=== PATIENT | female | born 1990 | race Caucasian/White ===

== ENCOUNTER 2017-07-28 07:39 | Emergency (ER) | payer BC ==
--- NOTE | 2017-07-28 07:58 | EDM.PDOC ---
ED HPI GENERAL MEDICAL PROBLEM - General Chief Complaint: Cardiovascular Problem Stated Complaint: HIGH BLOOD PRESSURE Time Seen by Provider: 07/28/17 07:58 Source of Information: Reports: Patient - History of Present Illness INITIAL COMMENTS - FREE TEXT/NARRATIVE: HISTORY AND PHYSICAL: History of present illness: []Patient presents with a history of high blood pressure and anxiety formerly on methyldopa she is now currently 12 weeks followed by Linda Jarvis. She has been on methyldopa 250 mg daily over the last year with fair blood pressure control, recently started on labetalol 300 mg, in doing some Internet reading the patient learned that there can be vasoconstriction and an increase in blood pressure with these medications. And she requested new medication and nifedipine 60 mg extended release was started yesterday. She presents this morning she has not taken any medication her blood pressure is elevated and she appears anxious Fever nausea vomiting chills sweats no chest pain shortness breath headache dizziness or palpitation no bowel or urine symptoms no low back pain and pressure vaginal fluid leakage bleeding spotting or discharge Review of systems: As per history of present illness and below otherwise all systems reviewed and negative. Past medical history: As per history of present illness and as reviewed below otherwise noncontributory. Surgical history: As per history of present illness and as reviewed below otherwise noncontributory. Social history: No reported history of drug or alcohol abuse. Family history: As per history of present illness and as reviewed below otherwise noncontributory. Physical exam: HEENT: Atraumatic, normocephalic, pupils reactive, negative for conjunctival pallor or scleral icterus, mucous membranes moist, throat clear, neck supple, nontender, trachea midline. Lungs: Clear to auscultation, breath sounds equal bilaterally, chest nontender. Heart: S1S2, regular, negative for clicks, rubs, or JVD. Abdomen: Soft, nondistended, nontender. Negative for masses or hepatosplenomegaly. Negative for costovertebral tenderness. Pelvis: Stable nontender. Genitourinary: Deferred. Rectal: Deferred. Extremities: Atraumatic, negative for cords or calf pain. Neurovascular unremarkable. Neuro: Awake, alert, oriented. Cranial nerves II through XII unremarkable. Cerebellum unremarkable. Motor and sensory unremarkable throughout. Exam nonfocal. Diagnostics: []CBC CMP [employer]: []Patient is on Procardia as of yesterday Procardia/nifedipine 60 mg ER by mouth now Labetalol 300 mg by mouth now Current blood pressure 130/100 after 1 hour, I'm not going to make further change I'll have her follow with her OB provider/primary care for further management of her hypertension Impression: Chronic hypertension in [12 weeks IUP] Definitive disposition and diagnosis as appropriate pending reevaluation and review of above. headache Pain Score (Numeric/FACES): 10 - Related Data Allergies Allergy/AdvReac Type Severity Reaction Status Date / Time Sulfa (Sulfonamide Allergy Rash Verified 07/28/17 07:50 Antibiotics) Home Meds: Home Meds NIFEdipine [Nifedical XL] 60 mg PO DAILY 07/28/17 [History] Past Medical History - Past Health History Medical/Surgical History: Denies Medical/Surgical History Cardiovascular History: Reports: Hypertension - Infectious Disease History Infectious Disease History: Reports: Chicken Pox Social & Family History - Family History Family Medical History: Noncontributory - Tobacco Use Smoking Status *Q: Never Smoker Second Hand Smoke Exposure: No - Caffeine Use Caffeine Use: Reports: None - Alcohol Use Days Per Week of Alcohol Use: 2 Number of Drinks Per Day: 4 Total Drinks Per Week: 8 - Recreational Drug Use Recreational Drug Use: No ED ROS GENERAL - Review of Systems Review Of Systems: ROS reveals no pertinent complaints other than HPI. ED EXAM, GENERAL - Physical Exam Exam: See Below Course - Vital Signs Last Recorded V/S: Last Vital Signs Temp 96.9 F 07/28/17 07:51 Pulse 82 07/28/17 10:20 Resp 18 07/28/17 10:20 BP 148/106 H 07/28/17 10:20 Pulse Ox 98 07/28/17 10:20 - Orders/Labs/Meds Labs: Laboratory Tests 07/28/17 07/28/17 07/28/17 Range/Units 08:03 08:03 08:03 WBC 10.28 (4.0-11.0) K/uL RBC 5.10 (4.30-5.90) M/uL Hgb 15.2 (12.0-16.0) g/dL Hct 43.9 (36.0-46.0) % MCV 86.1 (80.0-98.0) fL MCH 29.8 (27.0-32.0) pg MCHC 34.6 (31.0-37.0) g/dL RDW Std Deviation 39.1 (28.0-62.0) fl RDW Coeff of Smith 12 (11.0-15.0) % Plt Count 324 (150-400) K/uL MPV 10.10 (7.40-12.00) fL Neut % (Auto) 76.3 (48.0-80.0) % Lymph % (Auto) 18.6 (16.0-40.0) % [place] % (Auto) 4.5 (0.0-15.0) % Eos % (Auto) 0.3 (0.0-7.0) % Baso % (Auto) 0.3 (0.0-1.5) % Neut # (Auto) 7.9 H (1.4-5.7) K/uL Lymph # (Auto) 1.9 (0.6-2.4) K/uL [place] # (Auto) 0.5 (0.0-0.8) K/uL Eos # (Auto) 0.0 (0.0-0.7) K/uL Baso # (Auto) 0.0 (0.0-0.1) K/uL Nucleated RBC % 0.0 /100WBC Nucleated RBCs # 0 K/uL Sodium 136 (136-145) mmol/L Potassium 4.1 (3.5-5.1) mmol/L Chloride 102 (98-107) mmol/L Carbon Dioxide 22.8 (21.0-32.0) mmol/L BUN 9 (7.0-18.0) mg/dL Creatinine 0.9 (0.6-1.0) mg/dL Est Cr Clr Drug Dosing 79.85 mL/min Estimated GFR (MDRD) > 60.0 ml/min Glucose 99 (74-106) mg/dL Calcium 9.6 (8.5-10.1) mg/dL Total Bilirubin 0.5 (0.2-1.0) mg/dL AST 15 (15-37) IU/L ALT 22 (14-63) IU/L Alkaline Phosphatase 37 L (46-116) U/L Total Protein 7.9 (6.4-8.2) g/dL Albumin 4.2 (3.4-5.0) g/dL Globulin 3.7 H (2.0-3.5) g/dL Albumin/Globulin Ratio 1.1 L (1.3-2.8) HCG, Quant 19582.0 mIU/mL Urine Color Urine Appearance Urine pH (5.0-8.0) Ur Specific [place] (1.001-1.035) Urine Protein (NEGATIVE) mg/dL Urine Glucose (UA) (NEGATIVE) mg/dL Urine Ketones (NEGATIVE) mg/dL Urine Occult Blood (NEGATIVE) Urine Nitrite (NEGATIVE) Urine Bilirubin (NEGATIVE) Urine Urobilinogen (<2.0) EU/dL Ur Leukocyte Esterase (NEGATIVE) Urine RBC (0-2/HPF) Urine WBC (0-5/HPF) Ur Epithelial Cells (NONE-FEW) Urine Bacteria (NEGATIVE) 07/28/17 Range/Units 09:30 WBC (4.0-11.0) K/uL RBC (4.30-5.90) M/uL Hgb (12.0-16.0) g/dL Hct (36.0-46.0) % MCV (80.0-98.0) fL MCH (27.0-32.0) pg MCHC (31.0-37.0) g/dL RDW Std Deviation (28.0-62.0) fl RDW Coeff of Smith (11.0-15.0) % Plt Count (150-400) K/uL MPV (7.40-12.00) fL Neut % (Auto) (48.0-80.0) % Lymph % (Auto) (16.0-40.0) % [place] % (Auto) (0.0-15.0) % Eos % (Auto) (0.0-7.0) % Baso % (Auto) (0.0-1.5) % Neut # (Auto) (1.4-5.7) K/uL Lymph # (Auto) (0.6-2.4) K/uL [place] # (Auto) (0.0-0.8) K/uL Eos # (Auto) (0.0-0.7) K/uL Baso # (Auto) (0.0-0.1) K/uL Nucleated RBC % /100WBC Nucleated RBCs # K/uL Sodium (136-145) mmol/L Potassium (3.5-5.1) mmol/L Chloride (98-107) mmol/L Carbon Dioxide (21.0-32.0) mmol/L BUN (7.0-18.0) mg/dL Creatinine (0.6-1.0) mg/dL Est Cr Clr Drug Dosing mL/min Estimated GFR (MDRD) ml/min Glucose (74-106) mg/dL Calcium (8.5-10.1) mg/dL Total Bilirubin (0.2-1.0) mg/dL AST (15-37) IU/L ALT (14-63) IU/L Alkaline Phosphatase (46-116) U/L Total Protein (6.4-8.2) g/dL Albumin (3.4-5.0) g/dL Globulin (2.0-3.5) g/dL Albumin/Globulin Ratio (1.3-2.8) HCG, Quant mIU/mL Urine Color YELLOW Urine Appearance CLEAR Urine pH 6.5 (5.0-8.0) Ur Specific [place] 1.010 (1.001-1.035) Urine Protein NEGATIVE (NEGATIVE) mg/dL Urine Glucose (UA) NEGATIVE (NEGATIVE) mg/dL Urine Ketones NEGATIVE (NEGATIVE) mg/dL Urine Occult Blood NEGATIVE (NEGATIVE) Urine Nitrite NEGATIVE (NEGATIVE) Urine Bilirubin NEGATIVE (NEGATIVE) Urine Urobilinogen 0.2 (<2.0) EU/dL Ur Leukocyte Esterase NEGATIVE (NEGATIVE) Urine RBC NONE SEEN (0-2/HPF) Urine WBC 0-1 (0-5/HPF) Ur Epithelial Cells FEW (NONE-FEW) Urine Bacteria FEW (NEGATIVE) Meds: Medications Discontinued Medications Generic Name Dose Route Start Last Admin Trade Name Freq PRN Reason Stop Dose Admin Sodium Chloride 1,000 mls @ 999 mls/hr 07/28/17 07:59 07/28/17 08:17 Normal Saline IV 07/28/17 08:59 999 mls/hr STAT ONE Administration Labetalol HCl 300 mg 07/28/17 09:44 07/28/17 10:00 Normodyne PO 07/28/17 09:45 300 mg ONETIME ONE Administration Lorazepam 1 mg 07/28/17 07:59 07/28/17 08:18 Ativan IVPUSH 07/28/17 08:00 1 mg ONETIME ONE Administration Nifedipine 60 mg 07/28/17 08:31 07/28/17 08:57 Procardia Xl PO 07/28/17 08:32 60 mg ONETIME ONE Administration Nifedipine Confirm 07/28/17 08:54 07/28/17 09:32 Procardia Xl Administered 07/28/17 08:55 Not Given Dose 30 mg .ROUTE .STK-MED ONE Departure - Departure Time of Disposition: 11:03 Disposition: Home, Self-Care 01 Condition: Good Clinical Impression: Hypertension Referrals: Javier Beard MD [Primary Care Provider] - Forms: ED Department Discharge Additional Instructions: Recommend the blood pressure log that we discussed providing with your primary care/OB provider so they can further adjust medication as needed Currently labetalol 300 mg by mouth daily and nifedipine 60 mg by mouth daily is my recommendation Return if symptoms persist or worsen or new concerning symptoms develop Follow-up with OB or primary care next week for further adjustment as needed The following information is given to patients seen in the emergency department who are being discharged to home. This information is to outline your options for follow-up care. We provide all patients seen in our emergency department with a follow-up referral. The need for follow-up, as well as the timing and circumstances, are variable depending upon the specifics of your emergency department visit. If you don't have a primary care physician on staff, we will provide you with a referral. We always advise you to contact your personal physician following an emergency department visit to inform them of the circumstance of the visit and for follow-up with them and/or the need for any referrals to a consulting specialist. The emergency department will also refer you to a specialist when appropriate. This referral assures that you have the opportunity for follow-up care with a specialist. All of these measure are taken in an effort to provide you with optimal care, which includes your follow-up. Under all circumstances we always encourage you to contact your private physician who remains a resource for coordinating your care. When calling for follow-up care, please make the office aware that this follow-up is from your recent emergency room visit. If for any reason you are refused follow-up, please contact the [facility] emergency department at and asked to speak to the emergency department charge nurse.
[2017-07-28] MEDS ORDERED: LORazepam 2 MG/ML SDV IVPUSH ONE (07:59)
[2017-07-28] MEDS ORDERED: Sodium Chloride 0.9% 1,000 ML IV ONE (07:59)
[2017-07-28] MEDS ORDERED: NIFEdipine 30 MG Tab.ER PO ONE (08:31)
[2017-07-28 08:32] LABS: CHLORIDE,CL 102 mmol/L (98-107); SODIUM,NA 136 mmol/L (136-145)
[2017-07-28] MEDS ORDERED: NIFEdipine 30 MG Tab.ER ONE (08:54)
[2017-07-28] MEDS ORDERED: Labetalol 100 MG Tab PO ONE (09:44)
[2017-07-28 11:30] VITALS: BP 142/102
== END 2017-07-28 11:25 | disposition home or self-care (01) ==
LOC: MW.ED 07:39
DX: O10.911 Unspecified pre-existing hypertension complicating pregnancy, first trimester (principal); Z88.2 Allergy status to sulfonamides; Z79.899 Other long term (current) drug therapy; Z3A.12 12 weeks gestation of pregnancy
CPT/HCPCS: 36415; 80053; 81001; 84702; 85025; 96361; 96374; 99283; A9270; J2060; J7040

== ENCOUNTER 2020-07-13 10:52 | Inpatient (IN) | payer BC ==
[2020-07-13] MEDS ORDERED: Sodium Chloride 0.9% 2.5 ML Syringe FLUSH PRN (12:03)
[2020-07-13] MEDS ORDERED: Sodium Chloride 0.9% 10 ML SDV IV PRN (12:03)
[2020-07-13] MEDS ORDERED: Sodium Chloride 0.9% 10 ML Syringe FLUSH PRN (12:03)
[2020-07-13] MEDS ORDERED: Nalbuphine 10 MG/1 ML Vial IVPUSH PRN (12:03)
[2020-07-13] MEDS ORDERED: Water For Irrigation,Sterile 1,000 ML Container IRR PRN (12:03)
[2020-07-13] MEDS ORDERED: Misoprostol 200 MCG Tab PO PRN (12:03)
[2020-07-13] MEDS ORDERED: Ondansetron 4 MG/2 ML SDV IVPUSH PRN (12:03)
[2020-07-13] MEDS ORDERED: Tranexamic Acid 1,000 MG in Sodium Chloride 0.9% 100 ML IV PRN (12:03)
[2020-07-13] MEDS ORDERED: Carboprost Tromethamine 250 MCG/1 ML Amp IM PRN (12:03)
[2020-07-13] MEDS ORDERED: Methylergonovine 0.2 MG/1 ML Amp IM PRN (12:03)
[2020-07-13] MEDS ORDERED: Butorphanol 1 MG/ML SDV IVPUSH PRN (12:03)
[2020-07-13] MEDS ORDERED: Lidocaine 1% 50 ML MDV INJECT PRN (12:03)
[2020-07-13] MEDS ORDERED: Lactated Ringers 1,000 ML IV SCH (12:15)
[2020-07-13] MEDS ORDERED: Oxytocin/0.9 % Sodium Chloride 30 UNIT/500 ML BAG IV SCH ×2 (12:15→14:30)
[2020-07-13] MEDS ORDERED: Terbutaline 1 MG/ML SDV SUBCUT PRN (14:28)
[2020-07-13] MEDS ORDERED: Bupivicaine/fentaNYL/NS 250 ML ONE (17:06)
[2020-07-13] MEDS ORDERED: Ropivacaine 0.2% PF 2 MG/ML 20 ML SDV ONE (17:07)
--- NOTE | 2020-07-13 17:39 | PCM.PREANE ---
Preanesthetic Assessment - Procedure Proposed Procedure: labor epidural - Anesthesia/Transfusion/Family Hx Anesthesia History: Prior Anesthesia Without Reaction Family History of Anesthesia Reaction: No Transfusion History: Prior Transfusion Without Reaction - Review of Systems General: No Symptoms Pulmonary: No Symptoms Cardiovascular: No Symptoms Gastrointestinal: No Symptoms Neurological: No Symptoms Other: Reports: None - Physical Assessment Height: 5 ft 4 in Weight: 67.132 kg ASA Class: 2 Mental Status: Alert & Oriented x3 Airway Class: Mallampati = 1 Dentition: Reports: Normal Dentition Thyro-Mental Finger Breadths: 3 Mouth Opening Finger Breadths: 3 ROM/Head Extension: Full Lungs: Clear to Auscultation, Normal Respiratory Effort Cardiovascular: Regular Rate, Regular Rhythm Other: hx HTN - Lab Values: Laboratory Last Values WBC 7.73 K/uL (4.0-11.0) 07/13/20 12:27 RBC 4.10 M/uL (4.30-5.90) L 07/13/20 12:27 Hgb 11.1 g/dL (12.0-16.0) L 07/13/20 12:27 Hct 34.6 % (36.0-46.0) L 07/13/20 12:27 MCV 84.4 fL (80.0-98.0) 07/13/20 12:27 MCH 27.1 pg (27.0-32.0) 07/13/20 12:27 MCHC 32.1 g/dL (31.0-37.0) 07/13/20 12:27 RDW Std Deviation 41.0 fl (28.0-62.0) 07/13/20 12:27 RDW Coeff of Smith 13 % (11.0-15.0) 07/13/20 12:27 Plt Count 234 K/uL (150-400) 07/13/20 12:27 MPV 11.10 fL (7.40-12.00) 07/13/20 12:27 Nucleated RBC % 0.0 /100WBC 07/13/20 12:27 Nucleated RBCs # 0 K/uL 07/13/20 12:27 Membrane Rupture POSITIVE 07/13/20 11:02 SARS-CoV-2 RNA (FELISHA) NEGATIVE (NEGATIVE) 07/13/20 12:06 Blood Type A POSITIVE 07/13/20 12:27 Antibody Screen NEGATIVE 07/13/20 12:27 - Allergies Allergies/Adverse Reactions: Allergies Allergy/AdvReac Type Severity Reaction Status Date / Time Sulfa (Sulfonamide Allergy Rash Verified 07/13/20 11:16 Antibiotics) - Blood Blood Available: Yes Product(s) Available: PRBC - Anesthesia Plan Pre-Op Medication Ordered: None - Acknowledgements Anesthesia Type Planned: Epidural Pt an Appropriate Candidate for the Planned Anesthesia: Yes Alternatives and Risks of Anesthesia Discussed w Pt/Guardian: Yes Pt/Guardian Understands and Agrees with Anesthesia Plan: Yes PreAnesthesia Questionnaire - Past Health History Medical/Surgical History: Denies Medical/Surgical History Cardiovascular History: Reports: Hypertension Respiratory History: Reports: None Gastrointestinal History: Reports: None Genitourinary History: Reports: None [employer]CH[employer]ISING History: Reports: Musculoskeletal History: Reports: Fracture Neurological History: Reports: None Psychiatric History: Reports: None Endocrine/Metabolic History: Reports: None Hematologic History: Reports: None Immunologic History: Reports: None Oncologic (Cancer) History: Reports: None Dermatologic History: Reports: None - Infectious Disease History Infectious Disease History: Reports: Chicken Pox - Past Surgical History HEENT Surgical History: Reports: Other (See Below) Other HEENT Surgeries/Procedures: wisdom teeth extraction GI Surgical History: Reports: None Female Surgical History: Reports: None Musculoskeletal Surgical History: Reports: None - SUBSTANCE USE Tobacco Use Status *Q: Never Tobacco User Second Hand Smoke Exposure: No Recreational Drug Use History: No - HOME MEDS Home Medications: Home Meds NIFEdipine [Nifedical XL] 60 mg PO DAILY 07/28/17 [History] Aspirin [[place] Aspirin] 81 mg PO DAILY 07/13/20 [History] Iron,Carbonyl [Feosol] 45 mg PO DAILY 07/13/20 [History] Labetalol [Normodyne] 100 mg PO BID 07/13/20 [History] Vits #93/Iron Fum/FA [ Formula Tablet] 1 each PO DAILY 07/13/20 [History] - CURRENT (IN HOUSE) MEDS Current Meds: Current Medications Butorphanol Tartrate (Stadol) 1 mg IVPUSH Q1H PRN PRN Reason: Pain Carboprost Tromethamine (Hemabate Ds) 250 mcg IM ASDIRECTED PRN PRN Reason: Post Hemorrhage Lactated Ringer's (Ringers, Lactated) 1,000 mls @ 150 mls/hr IV ASDIRECTED [facility]ERVA Last Admin: 07/13/20 14:44 Dose: 150 mls/hr Documented by: Oxytocin/Sodium Chloride (Oxytocin 30 Unit/500 Ml-Ns) 30 unit in 500 mls @ 999 mls/hr IV TITRATE [facility] Tranexamic Acid 1,000 mg/ (Sodium Chloride) 110 mls @ 660 mls/hr IV ONETIME PRN PRN Reason: Bleeding Oxytocin/Sodium Chloride (Oxytocin 30 Unit/500 Ml-Ns) 30 unit in 500 mls @ 2 mls/hr IV TITRATE [facility]; Protocol Last Titration: 07/13/20 15:42 Dose: 6 munits/min, 6 mls/hr Documented by: Lidocaine HCl (Xylocaine 1%) 50 ml INJECT ONETIME PRN PRN Reason: Laceration repair Methylergonovine Maleate (Methergine) 0.2 mg IM ASDIRECTED PRN PRN Reason: Post Hemorrhage Misoprostol (Cytotec) 200 mcg PO ONETIME PRN PRN Reason: Post Hemorrhage Nalbuphine HCl (Nubain) 10 mg IVPUSH Q1H PRN PRN Reason: Pain (severe 7-10) Ondansetron HCl (Zofran) 4 mg IVPUSH Q6H PRN PRN Reason: Nausea/Vomiting Sodium Chloride (Saline Flush) 10 ml FLUSH ASDIRECTED PRN PRN Reason: Keep Vein Open Sodium Chloride (Saline Flush) 2.5 ml FLUSH ASDIRECTED PRN PRN Reason: Keep Vein Open Sodium Chloride (Normal Saline) 10 ml IV ASDIRECTED PRN PRN Reason: IV Use Sterile Water (Sterile Water For Irrigation) 1,000 ml IRR ASDIRECTED PRN PRN Reason: delivery Terbutaline Sulfate (Brethine) 0.25 mg SUBCUT ASDIRECTED PRN PRN Reason: Tacysystole Discontinued Medications Fentanyl/Bupivacaine HCl (Fentanyl/Bupivacaine/Ns 2 Mcg-0.125% 250 Ml) Confirm Administered Dose 250 mls @ as directed .ROUTE .STK-MED ONE Stop: 07/13/20 17:07 Ropivacaine (Naropin 0.2%) Confirm Administered Dose 20 ml .ROUTE .STK-MED ONE Stop: 07/13/20 17:08
[2020-07-13] MEDS ORDERED: Bupivacaine 0.5% 10 ML SDV ONE (17:54)
[2020-07-13] MEDS ORDERED: Docusate Sodium 100 MG Cap PO PRN (19:09)
[2020-07-13] MEDS ORDERED: Bisacodyl 10 MG Supp RECTAL PRN (19:09)
[2020-07-13] MEDS ORDERED: oxyCODONE 5 MG Tab PO PRN (19:09)
[2020-07-13] MEDS ORDERED: Acetaminophen 500 MG Tab PO PRN ×2 (19:09)
[2020-07-13] MEDS ORDERED: Lanolin 100% Cream 7 GM Tube TOP PRN (19:09)
[2020-07-13] MEDS ORDERED: Witch Hazel Medicated Pads 40/Jar TOP PRN (19:09)
[2020-07-13] MEDS ORDERED: Benzocaine/Menthol 20%-0.5% Spray 78 GM Cannister TOP PRN (19:09)
[2020-07-13] MEDS ORDERED: Ibuprofen 400 MG Tab PO PRN (19:09)
--- NOTE | 2020-07-13 19:13 | PCM.DEL ---
L & D Note - General Info Date of Service: 07/13/20 Mother's Due Date: 07/19/20 - Delivery Note Labor: Spontaneous, Augmented by Oxytocin Delivery Outcome: Livebirth Infant Delivery Method: Spontaneous Vaginal Delivery-Single Infant Delivery Mode: Spontaneous Presentation: Vertex Nuchal Cord: Present (triple), Reduced Prep: Other Anesthesia Type: Epidural Amniotic Fluid Description: Clear Episiotomy Type: None Laceration: 1st Degree, Perineal Suture type: Vicryl Suture size: 3-0 Placenta: Intact, Spontaneous Cord: 3 Vessels Estimated Blood Loss: 400 Resuscitation Needed: No [place]: Suctioned, Bulb Syringe, Stimulated Score 1 min: 8 Score 5 min: 9 - General Info Date of Service: 07/13/20 Functional Status: Reports: Pain Controlled - Review of Systems General: Reports: No Symptoms HEENT: Reports: No Symptoms Pulmonary: Reports: No Symptoms Cardiovascular: Reports: No Symptoms Gastrointestinal: Reports: No Symptoms Genitourinary: Reports: No Symptoms Musculoskeletal: Reports: No Symptoms Skin: Reports: No Symptoms Neurological: Reports: No Symptoms Psychiatric: Reports: No Symptoms - Patient Data Weight - Most Recent: 148 lb Lab Results Last 24 Hours: Laboratory Results - last 24 hr 07/13/20 07/13/20 07/13/20 Range/Units 11:02 12:06 12:27 WBC 7.73 (4.0-11.0) K/uL RBC 4.10 L (4.30-5.90) M/uL Hgb 11.1 L (12.0-16.0) g/dL Hct 34.6 L (36.0-46.0) % MCV 84.4 (80.0-98.0) fL MCH 27.1 (27.0-32.0) pg MCHC 32.1 (31.0-37.0) g/dL RDW Std Deviation 41.0 (28.0-62.0) fl RDW Coeff of Smith 13 (11.0-15.0) % Plt Count 234 (150-400) K/uL MPV 11.10 (7.40-12.00) fL Nucleated RBC % 0.0 /100WBC Nucleated RBCs # 0 K/uL Membrane Rupture POSITIVE SARS-CoV-2 RNA (FELISHA) NEGATIVE (NEGATIVE) Blood Type Antibody Screen 07/13/20 Range/Units 12:27 WBC (4.0-11.0) K/uL RBC (4.30-5.90) M/uL Hgb (12.0-16.0) g/dL Hct (36.0-46.0) % MCV (80.0-98.0) fL MCH (27.0-32.0) pg MCHC (31.0-37.0) g/dL RDW Std Deviation (28.0-62.0) fl RDW Coeff of Smith (11.0-15.0) % Plt Count (150-400) K/uL MPV (7.40-12.00) fL Nucleated RBC % /100WBC Nucleated RBCs # K/uL Membrane Rupture SARS-CoV-2 RNA (FELISHA) (NEGATIVE) Blood Type A POSITIVE Antibody Screen NEGATIVE Med Orders - Current: Current Medications Butorphanol Tartrate (Stadol) 1 mg IVPUSH Q1H PRN PRN Reason: Pain Carboprost Tromethamine (Hemabate Ds) 250 mcg IM ASDIRECTED PRN PRN Reason: Post Hemorrhage Lactated Ringer's (Ringers, Lactated) 1,000 mls @ 150 mls/hr IV ASDIRECTED [facility]ERVA Last Admin: 07/13/20 14:44 Dose: 150 mls/hr Documented by: Oxytocin/Sodium Chloride (Oxytocin 30 Unit/500 Ml-Ns) 30 unit in 500 mls @ 999 mls/hr IV TITRATE [facility] Tranexamic Acid 1,000 mg/ (Sodium Chloride) 110 mls @ 660 mls/hr IV ONETIME PRN PRN Reason: Bleeding Last Admin: 07/13/20 19:02 Dose: 660 mls/hr Documented by: Oxytocin/Sodium Chloride (Oxytocin 30 Unit/500 Ml-Ns) 30 unit in 500 mls @ 2 mls/hr IV TITRATE [facility]; Protocol Last Titration: 07/13/20 18:45 Dose: 500 munits/min, 500 mls/hr Documented by: Lidocaine HCl (Xylocaine 1%) 50 ml INJECT ONETIME PRN PRN Reason: Laceration repair Methylergonovine Maleate (Methergine) 0.2 mg IM ASDIRECTED PRN PRN Reason: Post Hemorrhage Misoprostol (Cytotec) 200 mcg PO ONETIME PRN PRN Reason: Post Hemorrhage Nalbuphine HCl (Nubain) 10 mg IVPUSH Q1H PRN PRN Reason: Pain (severe 7-10) Ondansetron HCl (Zofran) 4 mg IVPUSH Q6H PRN PRN Reason: Nausea/Vomiting Sodium Chloride (Saline Flush) 10 ml FLUSH ASDIRECTED PRN PRN Reason: Keep Vein Open Sodium Chloride (Saline Flush) 2.5 ml FLUSH ASDIRECTED PRN PRN Reason: Keep Vein Open Sodium Chloride (Normal Saline) 10 ml IV ASDIRECTED PRN PRN Reason: IV Use Sterile Water (Sterile Water For Irrigation) 1,000 ml IRR ASDIRECTED PRN PRN Reason: delivery Terbutaline Sulfate (Brethine) 0.25 mg SUBCUT ASDIRECTED PRN PRN Reason: Tacysystole Discontinued Medications Bupivacaine HCl (Sensorcaine-Mpf 0.5%) Confirm Administered Dose 10 ml .ROUTE .STK-MED ONE Stop: 07/13/20 17:55 Fentanyl/Bupivacaine HCl (Fentanyl/Bupivacaine/Ns 2 Mcg-0.125% 250 Ml) Confirm Administered Dose 250 mls @ as directed .ROUTE .STK-MED ONE Stop: 07/13/20 17:07 Ropivacaine (Naropin 0.2%) Confirm Administered Dose 20 ml .ROUTE .STK-MED ONE Stop: 07/13/20 17:08 Tranexamic Acid (Cyklokapron) Confirm Administered Dose 1,000 mg .ROUTE .STK-MED ONE Stop: 07/13/20 18:59 - Exam General: Alert, Oriented HEENT: Pupils Equal, EOMI Neck: Supple GI/Abdominal Exam: Non-Tender, No Distention (Female) Exam: Vaginal Bleeding, Other (1st degree midline perineal laceration repaired) - Problem List & Annotations (1) Vaginal delivery SNOMED Code(s): 051442112 Code(s): O80 - ENCOUNTER FOR FULL-TERM UNCOMPLICATED DELIVERY Status: Acute Current Visit: Yes Onset Date: ~07/13/20 - Problem List Review Problem List Initiated/Reviewed/Updated: Yes - Assessment Assessment:: 29 year old at 39+1 (EDC 07/19/20 via 1st trimester u/s) complicated by chronic hypertension controlled with oral nifedipine and labetolol delivered via a viable male apgars 8 & 9. - Plan Plan:: Routine pp cares * A+, rubella immune, GBS negative * PO pain medications PRN * Regular diet * , nursing assistance if needed Chronic hypertension * Previously on 100mg Labetalol BID and nifedipine 60mg once daily - plan to continue labetalol 100mg BID pp * Monitor bp's throughout stay
--- NOTE | 2020-07-13 21:03 | OR ---
SURGEON: Ana Ramirez M.D. DATE OF PROCEDURE: 07/13/2020 PREOPERATIVE DIAGNOSES: 1. A 39-1/7 weeks' intrauterine . 2. Spontaneous rupture of membranes. 3. Chronic hypertension. POSTOPERATIVE DIAGNOSES: 1. A 39-1/7 weeks' intrauterine . 2. Spontaneous rupture of membranes. 3. Chronic hypertension. PROCEDURE: Spontaneous vaginal delivery, first-degree midline laceration repaired. PRIMARY SURGEON: Ana Ramirez MD SENIOR CYTOTECHNOLOGIST: Celestina Mcbride MS4 ANESTHESIA: Epidural. ESTIMATED BLOOD LOSS: 400 mL. COMPLICATIONS: None known. FINDINGS: Viable male. score of 8 at one minute and 9 at five minutes. Weight at 3700 g. Spontaneous delivery, intact placenta, 3-vessel cord. DISPOSITION: to nursery, mom in LDRP. PROCEDURE DETAILS: Linda is a 29-year-old, G2, P1, at 39-1/7 weeks' gestational age, who presented with spontaneous rupture of membranes at approximately 3 a.m. Clear fluid was returned. Group B strep negative. She presented to Labor and Delivery shortly before noon. She was having some contractions. She felt that they were somewhat intensifying in nature, but her cervix was unchanged from clinic at 2 cm. Therefore, she was admitted, routine labs were drawn. COVID is negative. The patient was monitored for the next couple of hours with no significant change in cervical dilation and was initiated on Pitocin augmentation. Responded nicely to this, became increasingly uncomfortable over the next couple of hours and shortly, at approximately 5 p.m., underwent regional epidural and became more comfortable. Shortly after 6 p.m., she was found to be complete, 100% effaced, at a +2 station. I was called for delivery. Upon my arrival, the patient was placed in modified dorsal lithotomy position, was prepped and draped in usual aseptic manner. Began pushing efforts, pushed readily to a +4 station. Was able to deliver 's head atraumatically spontaneously. A loose nuchal cord x3 was reduced manually. Anterior shoulder, posterior shoulder, and remainder of the body was delivered without difficulty. 's oropharynx and nares were bulb suctioned. Infant was handed off to his mother with attending nursing staff at her side. After a delay, cord was clamped x2 and cut. Cord arterial, cord venous, cord blood sampling obtained. Light pressure was applied while the placenta was delivered spontaneously intact. Vigorous fundal uterine massage was then applied while 30 units of Pitocin was delivered in 500 mL IV fluid. Upon inspection of cervix, vaginal sidewalls, and perineum, there was a first-degree midline laceration. This was repaired using 3-0 Vicryl in the usual fashion. The patient tends to become slightly boggy and oozy and oozes quite easily with some blood clots. Therefore, given her history of hemorrhage, did deliver a dose of tranexamic acid. Uterus is remaining firm at this time. We will continue to monitor her bleeding closely. Her blood pressures remained well controlled through the and during labor and delivery process. We will resume just her labetalol in the direct period. Sponge count, instrument count, and needle count were correct. The patient remained in LDRP, to nursery. PACHECO / MELISSA /[id number]
[2020-07-13] MEDS: Labetalol 100 MG Tab PO SCH (21:33)
[2020-07-14] MEDS: Ibuprofen 800 MG Tab PO PRN ×2 (00:40→08:19)
--- NOTE | 2020-07-14 07:56 | PCM.PNPP ---
- General Info Date of Service: 07/14/20 Subjective Update: Patient doing well this am. Belly and bottom sore, pain controlled with PO pain meds. Bleeding appropriate. Had episode of dizziness upon standing last night, has been up ambulating & voiding without difficulty since. going well. Functional Status: Reports: Pain Controlled - Review of Systems General: Reports: No Symptoms HEENT: Reports: No Symptoms Pulmonary: Reports: No Symptoms Cardiovascular: Reports: No Symptoms Gastrointestinal: Reports: No Symptoms Genitourinary: Reports: No Symptoms Musculoskeletal: Reports: No Symptoms Skin: Reports: No Symptoms Neurological: Reports: No Symptoms Psychiatric: Reports: No Symptoms - General Info Date of Service: 07/14/20 - Patient Data Vital Signs - Most Recent: Last Vital Signs Temp 98.2 F 07/14/20 04:30 Pulse 87 07/14/20 04:30 Resp 16 07/14/20 04:30 BP 137/95 H 07/14/20 04:30 Pulse Ox 97 07/14/20 04:30 Weight - Most Recent: 148 lb Lab Results - Last 24 Hours: Laboratory Results - last 24 hr 07/13/20 07/13/20 07/13/20 Range/Units 11:02 12:06 12:27 WBC 7.73 (4.0-11.0) K/uL RBC 4.10 L (4.30-5.90) M/uL Hgb 11.1 L (12.0-16.0) g/dL Hct 34.6 L (36.0-46.0) % MCV 84.4 (80.0-98.0) fL MCH 27.1 (27.0-32.0) pg MCHC 32.1 (31.0-37.0) g/dL RDW Std Deviation 41.0 (28.0-62.0) fl RDW Coeff of Smith 13 (11.0-15.0) % Plt Count 234 (150-400) K/uL MPV 11.10 (7.40-12.00) fL Nucleated RBC % 0.0 /100WBC Nucleated RBCs # 0 K/uL Cord ABG pH (7.18-7.38) Cord ABG Base Excess (-10--2) Cord VBG pH (7.25-7.45) Cord VBG Base Excess (-10--2) Membrane Rupture POSITIVE SARS-CoV-2 RNA (FELISHA) NEGATIVE (NEGATIVE) Blood Type Antibody Screen 07/13/20 07/13/20 07/14/20 Range/Units 12:27 18:44 05:38 WBC (4.0-11.0) K/uL RBC (4.30-5.90) M/uL Hgb 10.0 L (12.0-16.0) g/dL Hct 30.9 L (36.0-46.0) % MCV (80.0-98.0) fL MCH (27.0-32.0) pg MCHC (31.0-37.0) g/dL RDW Std Deviation (28.0-62.0) fl RDW Coeff of Smith (11.0-15.0) % Plt Count (150-400) K/uL MPV (7.40-12.00) fL Nucleated RBC % /100WBC Nucleated RBCs # K/uL Cord ABG pH 7.256 (7.18-7.38) Cord ABG Base Excess -5 (-10--2) Cord VBG pH 7.352 (7.25-7.45) Cord VBG Base Excess -4 (-10--2) Membrane Rupture SARS-CoV-2 RNA (FELISHA) (NEGATIVE) Blood Type A POSITIVE Antibody Screen NEGATIVE Med Orders - Current: Current Medications Acetaminophen (Tylenol Extra Strength) 500 mg PO Q4H PRN PRN Reason: Pain Acetaminophen (Tylenol Extra Strength) 1,000 mg PO Q4H PRN PRN Reason: Pain Benzocaine/Menthol (Dermoplast Pain Relief 20%-0.5% [place]) 78 gm TOP ASDIRECTED PRN PRN Reason: Perineal Comfort Measure Last Admin: 07/13/20 21:34 Dose: 1 canister Documented by: Bisacodyl (Dulcolax) 10 mg RECTAL ONETIME PRN PRN Reason: Constipation Butorphanol Tartrate (Stadol) 1 mg IVPUSH Q1H PRN PRN Reason: Pain Carboprost Tromethamine (Hemabate Ds) 250 mcg IM ASDIRECTED PRN PRN Reason: Post Hemorrhage Docusate Sodium (Colace) 100 mg PO BID PRN PRN Reason: Constipation Emollient Ointment (Lansinoh Hpa) 0 gm TOP ASDIRECTED PRN PRN Reason: Sore Nipples Lactated Ringer's (Ringers, Lactated) 1,000 mls @ 150 mls/hr IV ASDIRECTED MINERVA Last Admin: 07/13/20 14:44 Dose: 150 mls/hr Documented by: Oxytocin/Sodium Chloride (Oxytocin 30 Unit/500 Ml-Ns) 30 unit in 500 mls @ 999 mls/hr IV TITRATE MINERVA Tranexamic Acid 1,000 mg/ (Sodium Chloride) 110 mls @ 660 mls/hr IV ONETIME PRN PRN Reason: Bleeding Last Admin: 07/13/20 19:02 Dose: 660 mls/hr Documented by: Oxytocin/Sodium Chloride (Oxytocin 30 Unit/500 Ml-Ns) 30 unit in 500 mls @ 2 mls/hr IV TITRATE MINERVA; Protocol Last Titration: 07/13/20 18:45 Dose: 500 munits/min, 500 mls/hr Documented by: Ibuprofen (Motrin) 400 mg PO Q4H PRN PRN Reason: Pain Ibuprofen (Motrin) 800 mg PO Q6H PRN PRN Reason: Pain Last Admin: 07/14/20 00:40 Dose: 800 mg Documented by: Labetalol HCl (Normodyne) 100 mg PO BID MINERVA Last Admin: 07/13/20 21:33 Dose: 100 mg Documented by: Lidocaine HCl (Xylocaine 1%) 50 ml INJECT ONETIME PRN PRN Reason: Laceration repair Nalbuphine HCl (Nubain) 10 mg IVPUSH Q1H PRN PRN Reason: Pain (severe 7-10) Ondansetron HCl (Zofran) 4 mg IVPUSH Q6H PRN PRN Reason: Nausea/Vomiting Oxycodone HCl (Oxycodone) 5 mg PO Q2H PRN PRN Reason: Pain Sodium Chloride (Saline Flush) 10 ml FLUSH ASDIRECTED PRN PRN Reason: Keep Vein Open Sodium Chloride (Saline Flush) 2.5 ml FLUSH ASDIRECTED PRN PRN Reason: Keep Vein Open Sodium Chloride (Normal Saline) 10 ml IV ASDIRECTED PRN PRN Reason: IV Use Sterile Water (Sterile Water For Irrigation) 1,000 ml IRR ASDIRECTED PRN PRN Reason: delivery Terbutaline Sulfate (Brethine) 0.25 mg SUBCUT ASDIRECTED PRN PRN Reason: Tacysystole Erasto Dodson (Tucks) 1 pad TOP ASDIRECTED PRN PRN Reason: comfort care Last Admin: 07/13/20 21:33 Dose: 1 pad Documented by: Discontinued Medications Bupivacaine HCl (Sensorcaine-Mpf 0.5%) Confirm Administered Dose 10 ml .ROUTE .STK-MED ONE Stop: 07/13/20 17:55 Fentanyl/Bupivacaine HCl (Fentanyl/Bupivacaine/Ns 2 Mcg-0.125% 250 Ml) Confirm Administered Dose 250 mls @ as directed .ROUTE .STK-MED ONE Stop: 07/13/20 17:07 Methylergonovine Maleate (Methergine) 0.2 mg IM ASDIRECTED PRN PRN Reason: Post Hemorrhage Misoprostol (Cytotec) 200 mcg PO ONETIME PRN PRN Reason: Post Hemorrhage Ropivacaine (Naropin 0.2%) Confirm Administered Dose 20 ml .ROUTE .STK-MED ONE Stop: 07/13/20 17:08 Tranexamic Acid (Cyklokapron) Confirm Administered Dose 1,000 mg .ROUTE .STK-MED ONE Stop: 07/13/20 18:59 - Interaction Disposition, : in Room with Family Interaction: Other (see below) (infant sleeping in bassinet) Feeding: Attempted ; Nursed Fair/Poor Support Person: - Recovery Exam Fundal Tone: Firm Fundal Level: 2 Fingerbreadths Below Umbilicus Fundal Placement: Midline Lochia Amount: Small Lochia Color: Rubra/Red Perineum Description: Edematous, Other (see below) Other Perinuem Description: 1st degree laceration Episiotomy/Laceration: Approximated Bladder Status: Voiding Urinary Elimination: Voided - Exam General: Alert, Oriented HEENT: Pupils Equal, EOMI Neck: Supple Lungs: Clear to Auscultation, Normal Respiratory Effort Cardiovascular: Regular Rate, Regular Rhythm GI/Abdominal Exam: Soft, No Distention, Tender (appropriate) Extremities: Normal Inspection, Normal Range of Motion, Non-Tender Skin: Warm, Dry, Intact Neurological: No New Focal Deficit Psy/Mental Status: Alert, Normal Affect, Normal Mood - Problem List & Annotations (1) Vaginal delivery SNOMED Code(s): 247100097 Code(s): O80 - ENCOUNTER FOR FULL-TERM UNCOMPLICATED DELIVERY Status: Acute Current Visit: Yes Onset Date: ~07/13/20 - Problem List Review Problem List Initiated/Reviewed/Updated: Yes - Assessment Assessment:: 29 year old PPD#1 s/p . complicated by chronic hypertension well controlled on oral labetalol and nifedipine. - Plan Plan:: 29 year old PPD#1 s/p . Hgb stable. BP mildly elevated this morning, will recheck after morning dose labetalol. Routine pp cares * A+, rubella immune, GBS negative * PO pain medications PRN * Regular diet * , nursing assistance if needed Chronic hypertension * Previously on 100mg Labetalol BID and nifedipine 60mg once daily - plan to continue labetalol 100mg BID pp * Monitor bp's throughout stay Dispo: stable. Anticipate discharge later today pending mom/ status.
[2020-07-14] MEDS: Labetalol 100 MG Tab PO SCH (08:58)
--- NOTE | 2020-07-14 13:10 | PCM.SN.2 ---
- Free Text/Narrative Note: patient seen and examined, blood pressure well controlled on labetalol only. Will continue this regimen. Hemoglobin is stable and lochia is dissipating. Patient woudl like to go home later today. Discharge instructios reviewed. Follow up at [facility] for PP visit. Call with BP >140/90. Discharge to home today.
--- NOTE | 2020-07-14 14:18 | PCM48HPAN ---
Post Anesthesia Note - EVALUATION WITHIN 48HRS OF ANESTHETIC Vital Signs in Normal Range: Yes (BP now well-controlled on labetolol) Patient Participated in Evaluation: Yes Respiratory Function Stable: Yes Airway Patent: Yes Cardiovascular Function Stable: Yes Hydration Status Stable: Yes Pain Control Satisfactory: Yes (Pain 4/10) Nausea and Vomiting Control Satisfactory: Yes Vital Signs: Last Vital Signs Temp 36.7 C 07/14/20 07:50 Pulse 77 07/14/20 08:58 Resp 16 07/14/20 07:50 BP 127/80 07/14/20 10:00 Pulse Ox 98 07/14/20 07:50 - COMMENTS/OBSERVATIONS Free Text/Narrative:: Ambulating well without assistance, full return of strength and sensation to BLE. Okay to discharge from anesthesia service.
[2020-07-14 17:07] VITALS: BP 142/86; PULSE 96
== END 2020-07-14 20:50 | disposition home or self-care (01) | DRG 560 ==
LOC: MW.OBCHECK 10:52 → MW.OB 10:52 → MW.OBCHECK 18:57 → MW.OB 18:58 → OBSVTOIN 19:09 → MW.OB 22:20
PROVIDERS: ADMIT Obstetrics & Gynecology; ATTEND Obstetrics & Gynecology
PROC: 10E0XZZ Delivery of Products of Conception, External Approach (ICD-10-PCS; principal; 2020-07-13)
PROC: 0HQ9XZZ Repair Perineum Skin, External Approach (ICD-10-PCS; 2020-07-13)
DX: O10.92 Unspecified pre-existing hypertension complicating childbirth (principal); O70.0 First degree perineal laceration during delivery; Z37.0 Single live birth; O69.81X0 Labor and delivery complicated by cord around neck, without compression, not applicable or unspecified; Z88.2 Allergy status to sulfonamides; Z20.822 Contact with and (suspected) exposure to COVID-19; Z3A.39 39 weeks gestation of pregnancy
CPT/HCPCS: 36415; 59025; 59409; 82803; 84112; 85014; 85018; 85027; 86592; 86850; 86900; 86901; A9270-GY; J2590; J2795; J3010; J3490; J7120; U0002